=== PATIENT | female | born 1995 | race African-American/Black ===

== ENCOUNTER 2023-10-27 21:19 | Day surgery (SDC) | payer SELFPAY ==
[2023-10-27] MEDS ORDERED: hydrALAZINE 20 MG/ML VIAL SLOW IVP PRN (21:21)
[2023-10-27 21:55] VITALS: BMI 35.4
[2023-10-27] MEDS ORDERED: Dextrose 5%-Lactated Ringers 1,000 ML IV SCH (22:30)
== END 2023-10-28 02:30 | disposition home or self-care (01) ==
LOC: CSHLD/OP 21:19
PROVIDERS: ATTEND Obstetrics & Gynecology
DX: O99.613 Diseases of the digestive system complicating pregnancy, third trimester (principal); K52.9 Noninfective gastroenteritis and colitis, unspecified; O21.2 Late vomiting of pregnancy; Z90.49 Acquired absence of other specified parts of digestive tract; Z79.899 Other long term (current) drug therapy; Z3A.34 34 weeks gestation of pregnancy